=== PATIENT | male | born 1965 | race Caucasian/White ===

== ENCOUNTER 2021-04-24 18:35 | Inpatient (IN) | payer BC, OTHER ==
[~2021-04-24] VITALS: Ht 177.8 cm; Wt 126.7 kg
[~2021-04-24 18:35] MED LIST: ASPIR 8181 MG PO; BRILINTA90 MG PO; BYSTOLIC 5 MG5 M1 PO; FLEXERIL PO; HYDROCHLOROTHIA25 M2 PO; LISINOPRIL20 MG PO; MOBIC15 MG PO; PLAVIX 75 MG TA75 M1 PO; PRAVACHOL40 MG PO; TRAMADOL 50 MG50 MG PO
--- NOTE | 2021-04-24 18:39 | NUR ---
PATIENT JUST GOT INTO ROOM AT THIS TIME. HE CAME WITH A BAG OF BLOOD FROM [facility] THAT HAS BEEN DISCONTINUED.
[2021-04-24 19:09] VITALS: BP 121/59
[2021-04-24 20:27] LABS: HEMATOCRIT 21.5 % (42.0-52.0); HEMOGLOBIN 7.1 gm/dL (14.0-18.0); MCHC 33.1 g/dL (28.0-37.0); MCV 93.6 fL (80.0-100.0); RBC 2.3 mil/uL (4.50-6.00); RDW 13.7 % (10.5-14.5); WBC 13.8 thou/uL (4.0-11.0)
[2021-04-24 20:35] LABS: CALCIUM 7.8 mg/dL (8.5-10.1); CREATININE 0.7 mg/dL (0.7-1.3); POTASSIUM 3.9 mmol/L (3.5-5.1)
[2021-04-24 20:39] LABS: INR 0.94; PROTIME 10.3 Seconds (10.5-12.1)
[2021-04-24 23:00] VITALS: BP 112/61
[2021-04-24 23:53] VITALS: BP 111/59
[2021-04-25] VITALS (8 sets, daily range): BP systolic 112–134; BP diastolic 45–73
[2021-04-25] MEDS ORDERED: TIZANIDINE HCL4 M2 PO (03:28)
[2021-04-25] MEDS ORDERED: CRESTOR40 MG PO (03:28)
[2021-04-25] MEDS ORDERED: TOPROL XL25 MG PO (03:29)
[2021-04-25] MEDS ORDERED: PROTONIX40 M2 PO (03:29)
[2021-04-25] MEDS ORDERED: FEOSOL325 M1 PO (03:33)
[2021-04-25 05:15] LABS: HEMATOCRIT 24.5 % (42.0-52.0)
--- NOTE | 2021-04-25 07:24 | NUR ---
ASSUMED CARE OF PT AT 1900, PT IS A/O X4. ASSESSMENT COMPLETED NOTED. PT RECIEVED 1 UNIT OF PRBC, WITHOUT INCEDENT. WILL CONTINUE TO WORK TOWARDS PT'S POC.
--- NOTE | 2021-04-25 10:15 | NUR ---
PT A&OX4. VERY UPSET THAT "NOTHING IS GETTING DONE" WANTS TO KNOW IF HE IS GOING TO HAVE PROCEDURE OR NOT TODAY. THIS RN EXPLAINED THE CONSULT AND HOSPITALIST ROLE IN HIS CARE, WITH AN EMPHASIS ON THE NEED FOR THE CONSULT TO SEE PT BEFORE PROGRESSION/PLAN IS FULLY MADE. PT VERBALIZED UNDERSTANDING. PT DENIES ADDITIONAL TARRY OR BLOODY STOOLS THIS MORNING.
--- NOTE | 2021-04-25 10:42 | NUR ---
RECORDS REQUEST FROM [facility] SUBMITTED WITH ASSIST FROM HEAT AND FROST INSULATOR
--- NOTE | 2021-04-25 13:35 | NUR ---
THIS RN RESPONDED TO PT CALL OUT, STOOL IN TOILET WAS DARK MAROON COLORED. STOOL WAS FORMED, NO CLOTS OBSERVED.
[2021-04-26 04:41] VITALS: BP 140/72
[2021-04-26 04:51] LABS: HEMATOCRIT 20.5 % (42.0-52.0); HEMOGLOBIN 7.1 gm/dL (14.0-18.0); MCH 32.7 pg (26.0-34.0); MCHC 34.7 g/dL (28.0-37.0); MCV 94.2 fL (80.0-100.0); RBC 2.17 mil/uL (4.50-6.00); RDW 14.2 % (10.5-14.5); WBC 9.7 thou/uL (4.0-11.0)
[2021-04-26 05:18] LABS: CALCIUM 8.1 mg/dL (8.5-10.1); CREATININE 0.7 mg/dL (0.7-1.3); POTASSIUM 4.5 mmol/L (3.5-5.1)
--- NOTE | 2021-04-26 06:31 | NUR ---
UPON SHIFT ASSESSMENT, PT AOX4. PT REPORTS 6/10 UPPER BACK PAIN. PT RECEIVING PRN PO TRAMADOL TID WITH PRN PO APAP Q6HR AVAILABLE. PT DENIES SOB WHILE ON ROOM AIR. PT TOLERATING PO INTAKE OF FLUIDS AND HEART HEALTHY DIET, NPO AT MIDNIGHT IN ANTICIPATION OF AM GI PROCEDURE PER GI PROVIDER NOTES. PT WITHOUT NAUSEA OR EMESIS. PT AMBULATING INDEPENDENTLY WITH STEADY GAIT IN ROOM, VOIDING PER URINAL. SENSATION INTACT, PERIPHERAL PULSES PALPABLE IN BUE, FAINT IN BLE. CAPILLARY REFILL LESS THAN 3SEC THROUGHOUT. PT RESTING IN BED THROUGHOUT SHIFT, FREQUENT REPOSITIONING ENCOURAGED, PT NOTED TO SHIFT INDEPENDENTLY. PT NOTIFIED STAFF OF 8/10 HEADACHE PAIN WHILE NPO. ONCALL TECHNICAL SOLUTIONS ENGINEER NOTIFIED, RECEIVED ORDERS FOR ONETIME IV PUSH 25MCG FENTANYL. PT ENCOURAGED TO NOTIFY STAFF FOR ALL NEEDS, CALL LIGHT WITHIN REACH, BED LOCKED IN LOWEST POSITION, FREQUENT MONITORING WILL CONTINUE.
[2021-04-26 07:40] VITALS: BP 141/83
--- NOTE | 2021-04-26 10:39 | NUR ---
WOUND CONSULT; THIS IS A TRAUMATIC WOUND CLOSED BY PRIMARY INTENTION. A HEALTHY, WELL SUTURED INCISION LINE. NO ERTHEMA. PATIENT DENIES PAIN. NO OTHER ISSUES IDENTIFIED. RECOMMENDATIONS; PAINTED THE INCISION IN WITH BETADINE; PATIENT EDSON ALLERGY TO BETADINE. NO NEED TO FOLLOW. PLEASE RECONSULT IF ANY NEED ARISES. DISCUSSED WITH RN
[2021-04-26 11:30] VITALS: BP 137/84
[2021-04-26 13:06] LABS: HEMATOCRIT 23.6 % (42.0-52.0); HEMOGLOBIN 7.7 gm/dL (14.0-18.0)
[2021-04-26 16:20] VITALS: BP 140/66
[2021-04-26 20:00] VITALS: BP 121/66
[2021-04-27 03:34] LABS: HEMATOCRIT 22.6 % (42.0-52.0); HEMOGLOBIN 7.6 gm/dL (14.0-18.0); MCH 31.5 pg (26.0-34.0); MCHC 33.5 g/dL (28.0-37.0); MCV 94.2 fL (80.0-100.0); RBC 2.4 mil/uL (4.50-6.00); RDW 13.9 % (10.5-14.5); WBC 8.3 thou/uL (4.0-11.0)
[2021-04-27 03:53] LABS: CALCIUM 8.2 mg/dL (8.5-10.1); CREATININE 0.8 mg/dL (0.7-1.3)
[2021-04-27 04:00] VITALS: BP 114/70
--- NOTE | 2021-04-27 06:43 | NUR ---
PT DEVICE REMOVED AT 2245 AND PLACED IN BAG IN WINDOW, VSS, PRN PAIN MEDS GIVEN FOR C/O BACK PAIN AND KOHLI, PT ENCOURAGED TO REPOSITION AND KEEP FEET ELEVATED, WILL CON'T TO MONITOR PER PPOC.
[2021-04-27 07:35] VITALS: BP 113/61
[2021-04-27 12:30] VITALS: BP 135/71
[2021-04-27 15:40] VITALS: BP 130/63
[2021-04-27 19:40] VITALS: BP 131/67
[2021-04-28 04:39] LABS: CALCIUM 8.2 mg/dL (8.5-10.1); CREATININE 0.9 mg/dL (0.7-1.3); POTASSIUM 3.9 mmol/L (3.5-5.1)
[2021-04-28 04:54] VITALS: BP 118/67
[2021-04-28 05:10] LABS: HEMATOCRIT 23.6 % (42.0-52.0); HEMOGLOBIN 7.8 gm/dL (14.0-18.0); MCH 31.6 pg (26.0-34.0); MCHC 33.2 g/dL (28.0-37.0); MCV 95.3 fL (80.0-100.0); RBC 2.48 mil/uL (4.50-6.00); RDW 14.3 % (10.5-14.5); WBC 7.6 thou/uL (4.0-11.0)
[2021-04-28 07:00] VITALS: BP 125/53
[2021-04-28] MEDS ORDERED: PROTONIX40 M2 PO (10:49)
[2021-04-28 11:04] VITALS: BP 125/53
--- NOTE | 2021-04-28 11:20 | NUR ---
PT RESTING COMFORTABLY. DC HOME TODAY. PT AFEBRILE, ADEQUATE UOP, 1 BM (TARRY, GI AWARE), APPROPRIATE APPETITE. NO DIZZYNESS/SYNCOPE/LIGHT-HEADEDNESS. PT HAS BEEN THOUROUGHLY UPDATED AND EDUCATED ON PT CONDITION, POC, AND DC INSTRUCTIONS. PT PROGRESSING TOWARDS POC.
--- NOTE | 2021-04-28 14:36 | P ---
[facility] [place] [address] PROCEDURE REPORT Name: FERNANDA MONET Room #: 208-P [facility]..#: [id number] Admission: 04/24/21 Attend Phys: Garland Infante MD Discharge: 04/28/21 Date of : 65 Report #: [id number] THIS REPORT FOR: cc: Kenan Kirkpatrick DO FAM - No family physician/PCP Jonathan Allen MD ~ cc: Kenan Kirkpatrick MD DATE OF SERVICE: 04/26/2021 PROCEDURE PERFORMED: Upper endoscopy and deployment of an M2 capsule. HISTORY OF PRESENT ILLNESS: The patient is a 56-year-old male with recent melanotic type stools, syncopal episode resulting in a laceration of his forehead. He was evaluated at [facility]. He underwent an upper endoscopy on Monday that was unremarkable. The following day, a colonoscopy with a repeat EGD, both of those were essentially normal. He believes that there was a lesion that they were concerned about on the upper scope. He has now received a unit of packed cells here. His hemoglobin today is 7.7, it was 7.1 prior to the transfusion, it was 8.0 on admission. Plan is for EGD with capsule deployment. DESCRIPTION OF PROCEDURE: The risks and benefits of the procedure were explained to the patient, those risks including but not limited to bleeding, perforation and the risk of sedation. He understood these risks and gave informed consent. Sedation was given using ketamine and propofol per Anesthesia. Next, using a standard Olympus upper endoscope, the scope was placed in the patient's mouth and advanced under direct vision through the esophagus, stomach and into the second portion of the duodenum. The esophagus was normal throughout. The GE junction was normal. Overall, the gastric mucosa was normal. On retroflexion in the fundus, which was hard to visualize easily due to looping, there appears to be a single small diverticulum. No evidence of bleeding. Otherwise, normal gastric mucosa. The pylorus was normal and patent. The duodenal bulb, first portion was normal. In the second to third portion of the duodenum, there was a duodenal diverticulum. No evidence of bleeding. No AVMs or abnormalities were noted in the duodenum. At this point, the scope was then brought back out and the deployment catheter was attached to the scope as well as to the M2 capsule. Next, the scope was reintroduced into the patient's mouth and advanced under direct vision through the esophagus, stomach and into the duodenum. The M2 capsule was deployed without difficulty. The scope was then withdrawn and the procedure terminated. The patient tolerated the procedure well. IMPRESSION: 1. Small likely diverticulum in the gastric fundus. 2. 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 [address] [address] PROCEDURE REPORT Name: CHIKIREBECA Room #: 208-P DIS IN M.R.#: [id number] Admission: 04/24/21 Attend Phys: Garland Infante MD Discharge: 04/28/21 Date of : 65 Report #: [id number] 3. Otherwise, normal upper endoscopy, no evidence of bleeding. RECOMMENDATIONS: 1. Await M2 capsule results. 2. Repeat hemoglobin tomorrow. Thank you for allowing me to participate in his care. <ELECTRONICALLY SIGNED> By: Jonathan Allen MD 04/28/21 1436 [id number] 0022 Jonathan Allen MD /nt
== END 2021-04-28 12:39 | disposition home or self-care (01) | DRG 378 ==
LOC: 2N 18:35
PROVIDERS: Nurse Practitioner; Nurse Practitioner Family; ADMIT Hospitalist; ATTEND Hospitalist
PROC: 30233N1 Transfusion of Nonautologous Red Blood Cells into Peripheral Vein, Percutaneous Approach (ICD-10-PCS; 2021-04-24)
PROC: 0DJ08ZZ Inspection of Upper Intestinal Tract, Via Natural or Artificial Opening Endoscopic (ICD-10-PCS; principal; 2021-04-26)
DX: K55.21 Angiodysplasia of colon with hemorrhage (principal); D62 Acute posthemorrhagic anemia; Z68.41 Body mass index [BMI] 40.0-44.9, adult; K31.4 Gastric diverticulum; I10 Essential (primary) hypertension; E78.5 Hyperlipidemia, unspecified; G47.33 Obstructive sleep apnea (adult) (pediatric); M10.9 Gout, unspecified; M13.0 Polyarthritis, unspecified; I73.9 Peripheral vascular disease, unspecified; E66.9 Obesity, unspecified; F17.220 Nicotine dependence, chewing tobacco, uncomplicated; I25.10 Atherosclerotic heart disease of native coronary artery without angina pectoris; R55 Syncope and collapse; K57.10 Diverticulosis of small intestine without perforation or abscess without bleeding; Z20.822 Contact with and (suspected) exposure to COVID-19; Z79.899 Other long term (current) drug therapy; Z79.82 Long term (current) use of aspirin; Z95.820 Peripheral vascular angioplasty status with implants and grafts; I25.2 Old myocardial infarction; Z95.5 Presence of coronary angioplasty implant and graft
CPT/HCPCS: 10081; 62110; 62900; 70005